=== PATIENT | male | born 1960 | race Caucasian/White ===

== ENCOUNTER 2017-04-16 11:06 | Day surgery (SDC) | payer OTHER ==
[2017-04-16] MEDS ORDERED: LACTATED RINGER'S 1000 ML IV PRN (15:15)
[2017-04-16] MEDS ORDERED: METOPROLOL TARTRATE 25 MG TAB PO PRN (15:15)
[2017-04-16] MEDS ORDERED: INSULIN HUMAN REGULAR 1,000 UNITS/10 ML VIAL SQ PRN (15:15)
[2017-04-16] MEDS ORDERED: SODIUM CHLORID 0.9% 500 ML IV PRN (15:15)
[2017-04-16] MEDS ORDERED: CHLORHEXIDINE GLUCONATE 2 % 1 PACK (2 CLOTHS) TOPICAL PRN (15:15)
[2017-04-16] MEDS ORDERED: POVIDONE IODINE 5% (ANTISEPSIS KIT) 4 APPLICATIONS EACH NARE PRN (15:15)
== END 2017-04-16 12:00 | disposition home or self-care (01) ==
LOC: HDOC 11:06 → HDIC 11:06 → HDOC 12:00
PROVIDERS: ATTEND Internal Medicine Cardiovascular Disease
DX: Q21.1 Atrial septal defect (principal); G45.9 Transient cerebral ischemic attack, unspecified
CPT/HCPCS: 99211; G0463

== ENCOUNTER 2017-05-20 12:42 | Day surgery (SDC) | payer OTHER ==
[2017-05-20] MEDS ORDERED: SODIUM CHLORID 0.9% 500 ML IV PRN (13:30)
[2017-05-20] MEDS ORDERED: POVIDONE IODINE 5% (ANTISEPSIS KIT) 4 APPLICATIONS EACH NARE PRN (13:30)
[2017-05-20] MEDS ORDERED: LACTATED RINGER'S 1000 ML IV PRN (13:30)
[2017-05-20] MEDS ORDERED: INSULIN HUMAN REGULAR 1,000 UNITS/10 ML VIAL SQ PRN (13:30)
[2017-05-20] MEDS ORDERED: CHLORHEXIDINE GLUCONATE 2 % 1 PACK (2 CLOTHS) TOPICAL PRN (13:30)
[2017-05-20] MEDS ORDERED: METOPROLOL TARTRATE 25 MG TAB PO PRN (13:30)
--- NOTE | 2017-05-20 22:45 | MP ---
cc: KEILY MILLS M.D., HUMAYUN A. M.D. DATE OF SURGERY 05/20/2017 This is a transesophageal echo. INDICATION Rule out ASD rule out PFO. 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 CONSENT Full informed consent was obtained prior to the procedure. The risks of , bleeding, perforation, aspiration, foreseen and unforeseen complications were reviewed. The patient fully appeared to understand the risks and willing to proceed with transesophageal echo. FINDINGS Anesthesia was given as per the Anesthesia Department performed up to 40 cm. The intraatrial septum was intact. Intraventricular septum was intact. The aortic valve was trileaflet. Mitral valve moved normally. Tricuspid valve moved normally. Doppler studies showed no evidence of significant mitral regurgitation. There was no evidence of significant ASD by Doppler. Bubble studies x2 showed no evidence of shunting across the intraatrial septum. The aorta was visualized poorly to 40 cm but no obvious dissection etc, seen. CONCLUSION Negative transesophageal echo for embolic source. Negative transesophageal echo for ASD or shunting. The left atrial appendage was also well visualized and free of thrombus. Leticia Ferreira MD, FRCP,MERGED WITH [facility] /3:18 PM /10:40 PM [facility]
--- NOTE | 2017-05-21 09:55 | EKG ---
Date Performed: 05/20/2017 Time Performed: 13:52:26 PTAGE: 56 years EKG: Sinus bradycardia. Septal T wave changes are nonspecific Borderline ECG NO PREVIOUS TRACING DOCTOR: Joseph Escamilla Interpretating Date/Time 05/21/2017 09:54:40
== END 2017-05-20 15:35 | disposition home or self-care (01) ==
LOC: HSDC 12:42 → HDIC 12:43 → HSDC 15:35
PROVIDERS: ATTEND Internal Medicine Cardiovascular Disease
DX: R55 Syncope and collapse (principal); R00.1 Bradycardia, unspecified; G45.9 Transient cerebral ischemic attack, unspecified; R42 Dizziness and giddiness; R61 Generalized hyperhidrosis; E78.5 Hyperlipidemia, unspecified; Z86.73 Personal history of transient ischemic attack (TIA), and cerebral infarction without residual deficits; Z87.891 Personal history of nicotine dependence
CPT/HCPCS: 93005; 93312; 93320; 93325